=== PATIENT | female | born 1985 | race Caucasian/White ===

== ENCOUNTER 2022-06-13 16:24 | Emergency (ER) | payer BC ==
--- NOTE | 2022-06-13 16:26 | ERPHSYRPT ---
- History of Present Illness Time Seen by Provider: 06/13/22 16:26 Historian: patient Exam Limitations: no limitations Physician History: This is a morbidly obese 36-year-old white female has a history of gastroesophageal reflux disease, morbid obesity, hypertension and anxiety issues and presents to the emergency department with 1 day history of sudden onset of fever, cough, mild shortness of breath, vomiting and diarrhea as well as myalgias and arthralgias. Patient states family members have had similar symptoms. However within 24 hours of those symptoms and those family members resolved. Patient's symptoms are worse. Patient denies chest pain. She only has mild abdominal pain from vomiting. She has no dysuria or hematuria. She has no localized flank pain. Timing/Duration: yesterday Activities at Onset: none Abdominal Pain Onset Location: generalized abdomen Pain Radiation: no radiation (Mild) Severity of Pain-Max: mild Severity of Pain-Current: mild Modifying Factors: Improves With: coughing, vomiting Associated Symptoms: diarrhea, loss of appetite, nausea, shortness of breath, vomiting, weakness Previous symptoms: no prior history Allergies/Adverse Reactions: No Known Drug Allergies Allergy (Unverified 06/13/22 16:48) Home Medications: Fluoxetine HCl 20 mg [Prozac 20 MG] 60 mg PO DAILY 06/13/22 [History] Lisinopril 20 mg [Zestril 20 MG] 20 mg PO DAILY 06/13/22 [History] Lorazepam 0.5 mg [Ativan 0.5 MG] 0.5 mg PO HS 06/13/22 [History] Metoprolol Succinate 25 mg Xl* [Toprol-Xl 25MG Tablets] 25 mg PO DAILY 06/13/22 [History] Omeprazole 40 mg PO DAILY 06/13/22 [History] Quetiapine Fumarate 100 mg [Seroquel 100 MG] 100 mg PO BID 06/13/22 [History] Quetiapine Fumarate 25 mg [Seroquel 25 MG] 25 mg PO DAILY PRN PRN 06/13/22 [History] Rimegepant Sulfate [Nurtec Odt] 75 mg PO DAILY 06/13/22 [History] Travel Risk - International Travel Have you traveled outside of the country in past 3 weeks: No - Coronavirus Screening Are you exhibiting any of the following symptoms?: Yes Symptoms: Cough: New Onset, Shortness of Breath, Vomiting/Diarrhea, Headaches/Body Aches/Fatigue Close contact with a COVID-19 positive Pt in past 14-21 Days: No - Review of Systems Constitutional: No Symptoms Eyes: No Symptoms Ears, Nose, & Throat: No Symptoms Respiratory: No Symptoms Cardiac: No Symptoms Abdominal/Gastrointestinal: Abdominal Pain (Mild generalized), Nausea, Vomiting, Diarrhea, No Constipation Genitourinary Symptoms: No Symptoms Musculoskeletal: Arthralgias, Myalgias Skin: No Symptoms Neurological: No Symptoms Psychological: No Symptoms Endocrine: No Symptoms Hematologic/Lymphatic: No Symptoms Immunological/Allergic: No Symptoms All Other Systems: Reviewed and Negative - Past Medical History Pertinent Past Medical History: Yes - Past Surgical History Past Surgical History: Yes - Nursing Vital Signs Nursing Vital Signs: Initial Vital Signs Temperature 98.4 F 06/13/22 16:39 Pulse Rate 113 H 06/13/22 16:39 Respiratory Rate 20 06/13/22 16:39 Blood Pressure 148/96 06/13/22 16:39 O2 Sat by Pulse Oximetry 95 06/13/22 16:39 Pain Scale Pain Intensity 8 - Physical Exam General Appearance: no apparent distress, alert, anxiety, obese Eye Exam: PERRL/EOMI, eyes nml inspection Ears, Nose, Throat Exam: normal ENT inspection, moist mucous membranes Neck Exam: normal inspection, non-tender, supple, full range of motion Respiratory Exam: normal breath sounds, lungs clear, airway intact, No chest tenderness, No respiratory distress Cardiovascular Exam: normal peripheral pulses, tachycardia Gastrointestinal/Abdomen Exam: soft, normal bowel sounds, tenderness (Very mild diffuse to palpation), No guarding, No rebound Pelvic Exam: not done Rectal Exam: not done Back Exam: normal inspection, normal range of motion, No CVA tenderness, No vertebral tenderness Extremity Exam: normal inspection, normal range of motion, pelvis stable Neurologic Exam: alert, oriented x 3, cooperative, 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 nml as tested, normal mood/affect, nml cerebellar function, nml station & gait, sensation nml Skin Exam: normal color, warm, dry Lymphatic Exam: No adenopathy SpO2 Interpretation: normal O2 Delivery: Room Air - Course Nursing assessment & vital signs reviewed: Yes Ordered Tests: Active Orders 24 hr Category Date Time Status IV Insertion STAT Care 06/13/22 16:51 Active CHEST 1 VIEW (PORTABLE) Stat Exams 06/13/22 16:52 Taken AMYLASE Stat Lab 06/13/22 17:08 Completed BLOOD CULTURE Stat Lab 06/13/22 16:45 Received CBC W DIFF Stat Lab 06/13/22 17:08 Completed CMP Stat Lab 06/13/22 17:08 Completed HCG,QUALITATIVE URINE Stat Lab 06/13/22 16:55 Completed LIPASE Stat Lab 06/13/22 17:08 Completed Lactic Acid Stat Lab 06/13/22 16:58 Completed Webster Screen Stat Lab 06/13/22 17:08 Completed UA W/RFX CULTURE Stat Lab 06/13/22 16:55 Ordered Medication Summary Discontinued Medications Generic Name Dose Route Start Last Admin Trade Name Freq PRN Reason Stop Dose Admin Sodium Chloride 1,000 mls @ 999 mls/hr 06/13/22 16:51 06/13/22 16:59 Sodium Chloride 0.9% 1000 Ml IV 06/13/22 17:51 999 mls/hr .Q1H1M STA Administration Sodium Chloride Confirm 06/13/22 16:57 Sodium Chloride 0.9% 1000 Ml Administered 06/13/22 16:58 Dose 1,000 mls @ ud .ROUTE .STK-MED ONE Ondansetron HCl 4 mg 06/13/22 16:51 06/13/22 16:59 Ondansetron Hcl 4 Mg/2 Ml Vial IV 06/13/22 16:52 4 mg STAT ONE Administration Ondansetron HCl Confirm 06/13/22 16:57 Ondansetron Hcl 4 Mg/2 Ml Vial Administered 06/13/22 16:58 Dose 4 mg .ROUTE .STK-MED ONE Lab/Rad Data: Laboratory Result Diagrams 06/13/22 17:08 06/13/22 17:08 Laboratory Results 06/13/22 06/13/22 06/13/22 Range/Units 17:08 17:08 17:08 WBC (4.0-10.5) x10^3/uL RBC (4.1-5.4) x10^6/uL Hgb (12.0-16.0) g/dL Hct (35-47) % MCV (78-100) fL MCH (26-32) pg MCHC (32-36) g/dL RDW (11.5-14.0) % Plt Count (150-450) x10^3/uL MPV (7.5-11.0) fL Gran % (36.0-66.0) % Immature Gran % (Auto) (0.00-0.4) % Nucleat RBC Rel Count (0.00-0.1) % Eos # (Auto) (0-0.5) x10^3/uL Immature Gran # (Auto) (0.00-0.03) x10^3u/L Absolute Lymphs (auto) (1.0-4.6) x10^3/uL Absolute Monos (auto) (0.0-1.3) x10^3/uL Absolute Nucleated RBC (0.00-0.01) x10^3u/L Lymphocytes % (24.0-44.0) % Monocytes % (0.0-12.0) % Eosinophils % (0.00-5.0) % Basophils % (0.0-0.4) % Absolute Granulocytes (1.4-6.9) x10^3/uL Basophils # (0-0.4) x10^3/uL Sodium (137-145) mmol/L Potassium (3.5-5.1) mmol/L Chloride (98-107) mmol/L Carbon Dioxide (22-30) mmol/L Anion Gap (5-15) MEQ/L BUN (7-17) mg/dL Creatinine (0.52-1.04) mg/dL Estimated GFR ML/MIN Glucose (74-106) mg/dL Lactic Acid (0.4-2.0) Calcium (8.4-10.2) mg/dL Total Bilirubin (0.2-1.3) mg/dL AST (14-36) U/L ALT (0-35) U/L Alkaline Phosphatase (38-126) U/L Serum Total Protein (6.3-8.2) g/dL Albumin (3.5-5.0) g/dL Amylase (30-110) U/L Lipase (23-300) U/L Urine HCG, Qual (Negative) Monoscreen NEGATIVE (Negative) Influenza Type A Ag NEGATIVE (NEGATIVE) Influenza Type B Ag NEGATIVE (NEGATIVE) RSV (PCR) NEGATIVE (Negative) SARS-CoV-2 (PCR) POSITIVE A (NEGATIVE) Group A Strep Antibody NOT DETECTED (NEGATIVE) 06/13/22 06/13/22 06/13/22 Range/Units 17:08 17:08 16:58 WBC 9.9 (4.0-10.5) x10^3/uL RBC 4.98 (4.1-5.4) x10^6/uL Hgb 13.2 (12.0-16.0) g/dL Hct 40.3 (35-47) % MCV 80.9 (78-100) fL MCH 26.5 (26-32) pg MCHC 32.8 (32-36) g/dL RDW 13.8 (11.5-14.0) % Plt Count 349 (150-450) x10^3/uL MPV 9.9 (7.5-11.0) fL Gran % 85.7 H (36.0-66.0) % Immature Gran % (Auto) 0.2 (0.00-0.4) % Nucleat RBC Rel Count 0.0 (0.00-0.1) % Eos # (Auto) 0.01 (0-0.5) x10^3/uL Immature Gran # (Auto) 0.02 (0.00-0.03) x10^3u/L Absolute Lymphs (auto) 0.73 L (1.0-4.6) x10^3/uL Absolute Monos (auto) 0.61 (0.0-1.3) x10^3/uL Absolute Nucleated RBC 0.00 (0.00-0.01) x10^3u/L Lymphocytes % 7.4 L (24.0-44.0) % Monocytes % 6.2 (0.0-12.0) % Eosinophils % 0.1 (0.00-5.0) % Basophils % 0.4 (0.0-0.4) % Absolute Granulocytes 8.46 H (1.4-6.9) x10^3/uL Basophils # 0.04 (0-0.4) x10^3/uL Sodium 135 L (137-145) mmol/L Potassium 4.0 (3.5-5.1) mmol/L Chloride 105 (98-107) mmol/L Carbon Dioxide 19 L (22-30) mmol/L Anion Gap 15.7 H (5-15) MEQ/L BUN 12 (7-17) mg/dL Creatinine 0.91 (0.52-1.04) mg/dL Estimated GFR > 60.0 ML/MIN Glucose 108 H (74-106) mg/dL Lactic Acid 1.3 (0.4-2.0) Calcium 9.5 (8.4-10.2) mg/dL Total Bilirubin 0.30 (0.2-1.3) mg/dL AST 32 (14-36) U/L ALT 32 (0-35) U/L Alkaline Phosphatase 136 H (38-126) U/L Serum Total Protein 8.0 (6.3-8.2) g/dL Albumin 4.5 (3.5-5.0) g/dL Amylase 67 (30-110) U/L Lipase 61 (23-300) U/L Urine HCG, Qual (Negative) Monoscreen (Negative) Influenza Type A Ag (NEGATIVE) Influenza Type B Ag (NEGATIVE) RSV (PCR) (Negative) SARS-CoV-2 (PCR) (NEGATIVE) Group A Strep Antibody (NEGATIVE) 06/13/22 Range/Units 16:55 WBC (4.0-10.5) x10^3/uL RBC (4.1-5.4) x10^6/uL Hgb (12.0-16.0) g/dL Hct (35-47) % MCV (78-100) fL MCH (26-32) pg MCHC (32-36) g/dL RDW (11.5-14.0) % Plt Count (150-450) x10^3/uL MPV (7.5-11.0) fL Gran % (36.0-66.0) % Immature Gran % (Auto) (0.00-0.4) % Nucleat RBC Rel Count (0.00-0.1) % Eos # (Auto) (0-0.5) x10^3/uL Immature Gran # (Auto) (0.00-0.03) x10^3u/L Absolute Lymphs (auto) (1.0-4.6) x10^3/uL Absolute Monos (auto) (0.0-1.3) x10^3/uL Absolute Nucleated RBC (0.00-0.01) x10^3u/L Lymphocytes % (24.0-44.0) % Monocytes % (0.0-12.0) % Eosinophils % (0.00-5.0) % Basophils % (0.0-0.4) % Absolute Granulocytes (1.4-6.9) x10^3/uL Basophils # (0-0.4) x10^3/uL Sodium (137-145) mmol/L Potassium (3.5-5.1) mmol/L Chloride (98-107) mmol/L Carbon Dioxide (22-30) mmol/L Anion Gap (5-15) MEQ/L BUN (7-17) mg/dL Creatinine (0.52-1.04) mg/dL Estimated GFR ML/MIN Glucose (74-106) mg/dL Lactic Acid (0.4-2.0) Calcium (8.4-10.2) mg/dL Total Bilirubin (0.2-1.3) mg/dL AST (14-36) U/L ALT (0-35) U/L Alkaline Phosphatase (38-126) U/L Serum Total Protein (6.3-8.2) g/dL Albumin (3.5-5.0) g/dL Amylase (30-110) U/L Lipase (23-300) U/L Urine HCG, Qual NEGATIVE (Negative) Monoscreen (Negative) Influenza Type A Ag (NEGATIVE) Influenza Type B Ag (NEGATIVE) RSV (PCR) (Negative) SARS-CoV-2 (PCR) (NEGATIVE) Group A Strep Antibody (NEGATIVE) - Progress Progress: improved Progress Note: 06/13/22 18:00 Chest x-ray shows no acute cardiopulmonary process. Counseled pt/family regarding: lab results, diagnosis, rad results - Departure Departure Disposition: Home Clinical Impression: COVID-19 virus infection Condition: Stable Critical Care Time: No Referrals: DOCTOR,NO FAMILY [Primary Care Provider] - Follow up/PCP as directed Additional Instructions: Drink plenty of clear liquids before advancing your diet to a full liquid diet. Quarantine yourself as instructed. Use ibuprofen for pain and fever control. Use your cough medicine as prescribed. Use your nausea medication as prescribed. Prescriptions: Ondansetron ODT 4 MG [Zofran Odt 4 mg] 4 mg PO Q6H PRN PRN #10 tablet PRN Reason: Vomiting Hydrocodone/Acetaminophen [Hydrocodone-Acetamn 7.5-325/15] 10 ml PO Q8H PRN PRN #120 ml MDD 30 ml PRN Reason: Cough
[2022-06-13] MEDS ORDERED: Zofran 4 MG/2 ML VIAL IV ONE (16:51)
[2022-06-13] MEDS ORDERED: Sodium Chloride 0.9% 1000 ML 1,000 ML IV STA (16:51)
[2022-06-13] MEDS ORDERED: Sodium Chloride 0.9% 1000 ML 1,000 ML ONE (16:57)
[2022-06-13] MEDS ORDERED: Zofran 4 MG/2 ML VIAL ONE (16:57)
[2022-06-13 17:18] LABS: Absolute Neutrophil Ct (ANC) 8.46 x10^3/uL (1.4-6.9); Basophil (Absolute #) 0.04 x10^3/uL (0-0.4); Eosinophil % 0.1 % (0.00-5.0); Eosinophil (Absolute #) 0.01 x10^3/uL (0-0.5); Hematocrit 40.3 % (35-47); Hemoglobin 13.2 g/dL (12.0-16.0); Lymphocyte (Absolute #) 0.73 x10^3/uL (1.0-4.6); Lymphocytes % 7.4 % (24.0-44.0); Mean Cell Volume 80.9 fL (78-100); Mean Corpuscular Hemoglobin 26.5 pg (26-32); Mean Corpuscular Hgb Concent. 32.8 g/dL (32-36); Mean Platelet Volume 9.9 fL (7.5-11.0); Monocyte (Absolute #) 0.61 x10^3/uL (0.0-1.3); Monocytes % 6.2 % (0.0-12.0); Neutrophil % 85.7 % (36.0-66.0); Platelet Count 349 x10^3/uL (150-450); Red Blood Count 4.98 x10^6/uL (4.1-5.4); Red Cell Distribution Width 13.8 % (11.5-14.0); White Blood Count 9.9 x10^3/uL (4.0-10.5)
[2022-06-13 17:28] LABS: ALBUMIN 4.5 g/dL (3.5-5.0); ALKALINE PHOSPHATASE 136 U/L (38-126); AMYLASE 67 U/L (30-110); ANION GAP 15.7 MEQ/L (5-15); BLOOD UREA NITROGEN 12 mg/dL (7-17); CHLORIDE 105 mmol/L (98-107); Calcium 9.5 mg/dL (8.4-10.2); Carbon Dioxide 19 mmol/L (22-30); Creatinine 1 0.91 mg/dL (0.52-1.04); EST GLOMERULAR FILTRATION RATE > 60.0 ML/MIN; Glucose 108 mg/dL (74-106); LIPASE 61 U/L (23-300); SGOT/AST 32 U/L (14-36); SGPT/ALT 32 U/L (0-35); SODIUM 135 mmol/L (137-145)
[2022-06-13 17:55] LABS: INFLUENZA A NEGATIVE (NEGATIVE); INFLUENZA B NEGATIVE (NEGATIVE); RESPIRATORY SYNCTIAL VIRUS NEGATIVE (Negative)
[2022-06-13 17:58] LABS: SARS-CoV-2 Xpert Express POSITIVE (NEGATIVE)
[2022-06-13 18:04] VITALS: BP 142/92; PULSE 101; O2SAT 100
[2022-06-13 18:13] LABS: Bacteria RARE /HPF (NEGATIVE); Epithelial Cells MANY /HPF (FEW); Mucus SLIGHT /HPF (NEGATIVE); RBC 0-2 /HPF (0-2)
[2022-06-13 18:17] LABS: Appearance SLIGHTLY CLOUDY (CLEAR); Bilirubin NEGATIVE (NEGATIVE); Glucose NEGATIVE (NEGATIVE); Ketones NEGATIVE (NEGATIVE); Nitrite NEGATIVE (NEGATIVE); Protein,Urine Dip NEGATIVE (Negative); RBC NEGATIVE Ery/ul (0-5); Specific Gravity 1.025 (1.005-1.025); Urobilinogen 1 mg/dL (0-1)
[2022-06-13 18:18] LABS: Dipstick done @ ? MAIN LAB; Urine Cultured Indicated? NO
--- NOTE | 2022-06-14 09:22 | XRAY ---
Exam: AP upright portable chest film from 06/13/2022. Comparison: [None.] Indication: Cough; shortness of air. Findings: EKG leads are seen in place. The heart size and contour are normal. The enrique and mediastinal structures appear unremarkable. The patient is rotated slightly toward the right. The lungs are well expanded and reveal no air space infiltrates, vascular congestion, pneumothorax, or pleural fluid. There is a tiny calcified granuloma within the superior right lung apex. No acute osseous process is seen. Impression: 1. No acute cardiopulmonary disease is seen.
== END 2022-06-13 18:25 | disposition home or self-care (01) ==
LOC: ED 16:24
DX: U07.1 COVID-19 (principal); R50.9 Fever, unspecified; R05.1 Acute cough; R06.02 Shortness of breath; R11.2 Nausea with vomiting, unspecified; R19.7 Diarrhea, unspecified; M79.10 Myalgia, unspecified site; R10.84 Generalized abdominal pain; Z79.891 Long term (current) use of opiate analgesic; Z79.899 Other long term (current) drug therapy
CPT/HCPCS: 0241U; 36000; 36415; 71045; 80053; 81015; 81025; 82150; 83605; 83690; 85025; 86308; 87040; 87651; 96374; 99284; J2405

== ENCOUNTER 2022-07-04 18:56 | Emergency (ER) | payer BC ==
[2022-07-04 19:25] VITALS: O2SAT 97
[2022-07-04] MEDS ORDERED: Augmentin 875-125 Tablet PO ONE (19:39)
[2022-07-04] MEDS ORDERED: TORAdol 30 mg Injection IM ONE (19:40)
--- NOTE | 2022-07-04 19:41 | ERPHSYRPT ---
- History of Present Illness Time Seen by Provider: 07/04/22 19:30 Source: patient Exam Limitations: no limitations Patient Subjective Stated Complaint: pt states "My left ear has been hurting for a couple days." Triage Nursing Assessment: pt ambulatory to bed by self, pt alert and oriented x3, pt c/o L ear pain for 2 days, pt was seen by ENT on Jun 21 for her chronic sinuitis and was prescribed amoxicillin for 21 as well, pt is afebrile, pt has tinnitis but no drainage noted from the L ear Physician History: Patient is a 37-year-old female presents to emergency department for evaluation of left ear pain. Patient has been experiencing left ear pain and mild tinnitus for approximately 2 days. Patient states she has a history of chronic sinusitis. Patient recently saw her ENT doctor who started her on amoxicillin. Patient has been on amoxicillin since June 21. Patient symptoms are constant. Symptoms are moderate in intensity. No specific worsening or improving factors. No headache. No mastoid pain or tenderness. No neck pain. No photophobia. Patient has no meningeal signs. Patient that she is otherwise healthy. She voices no other complaints or concerns at this time. Portions of this note were created with voice recognition technology. There may be grammatical, spelling, punctuation or sound alike errors Timing/Duration: gradual onset Severity: moderate ENT Location: ear (L) Prearrival Treatment: no prearrival treatment Modifying Factors: Improves With: nothing Associated Symptoms: denies symptoms, dizziness, ringing of ears, other, No fever, No drooling (Mild cellulitis), No ear drainage, No jaw pain, No motion sickness, No neck pain, No tooth pain Allergies/Adverse Reactions: No Known Drug Allergies Allergy (Verified 07/04/22 19:17) Home Medications: Fluoxetine HCl 20 mg [Prozac 20 MG] 60 mg PO DAILY 06/13/22 [History] Lisinopril 20 mg [Zestril 20 MG] 20 mg PO DAILY 06/13/22 [History] Lorazepam 0.5 mg [Ativan 0.5 MG] 0.5 mg PO HS 06/13/22 [History] Metoprolol Succinate 25 mg Xl* [Toprol-Xl 25MG Tablets] 25 mg PO DAILY 06/13/22 [History] Omeprazole 40 mg PO DAILY 06/13/22 [History] Rimegepant Sulfate [Nurtec Odt] 75 mg PO DAILY 06/13/22 [History] Olanzapine [Olanzapine Odt] 5 mg PO DAILY 07/04/22 [History] Hx Tetanus, Diphtheria Vaccination/Date Given: Yes Hx Influenza Vaccination/Date Given: No Hx Pneumococcal Vaccination/Date Given: No Immunizations Up to Date: Yes Travel Risk - International Travel Have you traveled outside of the country in past 3 weeks: No - Coronavirus Screening Are you exhibiting any of the following symptoms?: No Close contact with a COVID-19 positive Pt in past 14-21 Days: No - Vaccine Status Have you recieved a Covid-19 vaccination: No - Review of Systems Constitutional: No Symptoms, No Fever, No Chills Eyes: No Symptoms Ears, Nose, & Throat: No Symptoms Respiratory: No Symptoms, No Cough, No Dyspnea Cardiac: No Symptoms, No Chest Pain, No Edema, No Syncope Abdominal/Gastrointestinal: No Symptoms, No Abdominal Pain, No Nausea, No Vomiting, No Diarrhea Genitourinary Symptoms: No Symptoms, No Dysuria Musculoskeletal: No Symptoms, No Back Pain, No Neck Pain Skin: No Symptoms, No Rash Neurological: No Symptoms, No Dizziness, No Focal Weakness, No Sensory Changes Psychological: No Symptoms Endocrine: No Symptoms Hematologic/Lymphatic: No Symptoms Immunological/Allergic: No Symptoms All Other Systems: Reviewed and Negative - Past Medical History Pertinent Past Medical History: Yes Neurological History: Migraines ENT History: No Pertinent History Cardiac History: Hypertension Respiratory History: No Pertinent History Endocrine Medical History: No Pertinent History Musculoskeletal History: Arthritis GI Medical History: GERD History: No Pertinent History Psycho-Social History: Anxiety, Bipolar, Depression Female Reproductive Disorders: No Pertinent History - Past Surgical History Past Surgical History: Yes Neuro Surgical History: No Pertinent History Cardiac: No Pertinent History Respiratory: No Pertinent History Gastrointestinal: Cholecystectomy Genitourinary: No Pertinent History Musculoskeletal: Joint Replacement Female Surgical History: Tubal Ligation Other Surgical History: R knee - Social History Smoking Status: Never smoker Exposure to second hand smoke: No Drug Use: none Patient Lives Alone: No - Female History Hx Last Menstrual Period: 06/13/2022 Hx Now: No - Nursing Vital Signs Nursing Vital Signs: Initial Vital Signs Temperature 98.2 F 07/04/22 19:24 Pulse Rate 101 H 07/04/22 19:24 Respiratory Rate 18 07/04/22 19:24 Blood Pressure 189/100 07/04/22 19:24 O2 Sat by Pulse Oximetry 97 07/04/22 19:24 Pain Scale Pain Intensity 8 - Physical Exam General Appearance: no apparent distress, alert Eye Exam: bilateral eye: normal inspection, PERRL, EOMI Ear Exam: right ear: auricle normal, canal normal, TM normal, left ear: TM red, TM bulging, other (No mastoid erythema or tenderness.) Nasal Exam: normal inspection Throat Exam: normal, pharynx normal, moist mucus membranes, No tonsillar exudate, No trismus Neck Exam: normal inspection, non-tender, supple, full range of motion Cardiovascular/Respiratory Exam: chest non-tender, normal breath sounds, regular rate/rhythm Abdominal Exam: non-tender, soft, No tenderness Neurologic Exam: alert, oriented x 3, cooperative, 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 Patient currently on amoxicillin as per her ENT for chronic sinusitis. We will discontinue the amoxicillin and start her on Augmentin. Patient agrees to stop the amoxicillin and to only take Augmentin. Patient will follow up with her ENT doctor within 48 hours for reevaluation. Patient given Toradol IM for pain control. Patient dates she feels much better. Patient ready for discharge. She voices no other complaints or concerns at this time. Portions of this note were created with voice recognition technology. There may be grammatical, spelling, punctuation or sound alike errors 07/04/22 19:42 Counseled pt/family regarding: diagnosis, need for follow-up - Departure Departure Disposition: Home Clinical Impression: Otitis media Condition: Stable Critical Care Time: No Referrals: DOCTOR,NO FAMILY [Primary Care Provider] - Follow up/PCP as directed TANYA GALLARDO MD [ACTIVE STAFF] - Follow up/PCP as directed Additional Instructions: Discharge/Care Plan GORAN THAPA was seen on 07/04/22 in the Emergency Room. The patient was counseled regarding Diagnosis,Lab results, Imaging studies, need for follow up and when to return to the Emergency Room. Prescriptions given: Discharge Note I have spoken with the patient and/or caregivers. I have explained the patient's condition, diagnosis and treatment plan based on the information available to me at this time. I have answered the patient's and/or caregiver's questions and addressed any concerns. The patient and/or caregivers have as good understanding of the patient's diagnosis, condition and treatment plan as can be expected at this point. The vital signs have been stable. The patient's condition is stable and appropriate for discharge from the emergency department. The patient will pursue further outpatient evaluation with the primary care physician or other designated or consulting physician as outlined in the discharge instructions. The patient and/or caregivers are agreeable to this plan of care and follow-up instructions have been explained in detail. The patient and/or caregivers have received these instruction. The patient/and or caregivers are aware that any significant change in condition or worsening of symptoms should prompt an immediate return to this or the closest emergency department or call 911.
[2022-07-04] MEDS ORDERED: TYLENOL 325 MG PO ONE (19:44)
[2022-07-04] MEDS ORDERED: TYLENOL 325 MG ONE (20:06)
[2022-07-04] MEDS ORDERED: Augmentin 875-125 Tablet ONE (20:06)
[2022-07-04] MEDS ORDERED: TORAdol 30 mg Injection ONE (20:06)
[2022-07-04 20:19] VITALS: BP 167/102; PULSE 97
== END 2022-07-04 20:30 | disposition home or self-care (01) ==
LOC: ED 18:56
DX: H66.92 Otitis media, unspecified, left ear (principal); H92.02 Otalgia, left ear; H93.12 Tinnitus, left ear; I10 Essential (primary) hypertension; Z79.899 Other long term (current) drug therapy; Z28.310 Unvaccinated for COVID-19
CPT/HCPCS: 96372; 99283; J1885; A9270-GY

== ENCOUNTER 2022-08-29 12:10 | Day surgery (SDC) | payer BC ==
[2022-08-29] MEDS ORDERED: LIDOCAINE HCL 2% 100 MG/5 ML IJ ONE (12:11)
[2022-08-29] MEDS ORDERED: Lactated Ringers 1,000 ML IV ONE (14:03)
[2022-08-29] MEDS ORDERED: DIPRIVAN 200 MG/20 ML IV ONE (14:24)
--- NOTE | 2022-08-29 16:40 | XRAY ---
Indication: Bilateral L4-S1 MBB. Intraoperative fluoroscopy provided for 8 seconds. Single digital spot image submitted for interpretation demonstrates posterior needle tips projecting over the expected left and right L4-S1 nerve roots. Correlate with intraoperative findings/report.
--- NOTE | 2022-08-29 16:49 | XRAY ---
8 seconds fluoroscopy time in surgery for bilateral L4-S1 MBB.
== END 2022-08-29 15:00 | disposition home or self-care (01) ==
LOC: SDC-PAIN 12:10
PROVIDERS: ATTEND Psychiatry & Neurology Pain Medicine
DX: M47.816 Spondylosis without myelopathy or radiculopathy, lumbar region (principal); Z79.899 Other long term (current) drug therapy
CPT/HCPCS: 64493; 64494; 72020; 77002; 81025; J2704

== ENCOUNTER 2022-09-26 13:56 | Day surgery (SDC) | payer BC ==
[2022-09-26] MEDS ORDERED: BUPIVACAINE 0.5% VIAL IJ ONE (13:57)
[2022-09-26] MEDS ORDERED: APRESOLINE 20 MG/ML INJ ONE (14:27)
[2022-09-26] MEDS ORDERED: DIPRIVAN 200 MG/20 ML IV ONE (15:31)
[2022-09-26] MEDS ORDERED: Lactated Ringers 1,000 ML IV ONE (16:37)
--- NOTE | 2022-09-26 16:58 | XRAY ---
8 seconds of fluoroscopy was used in surgery for a bilateral L4-S1 MBB.
== END 2022-09-26 16:22 | disposition home or self-care (01) ==
LOC: SDC-PAIN 13:56
PROVIDERS: ATTEND Psychiatry & Neurology Pain Medicine
DX: M47.816 Spondylosis without myelopathy or radiculopathy, lumbar region (principal); Z79.899 Other long term (current) drug therapy
CPT/HCPCS: 64493; 64494; 72020; 77002; 81025; J0360; J2704

== ENCOUNTER 2022-10-24 13:43 | Day surgery (SDC) | payer BC ==
[2022-10-24] MEDS ORDERED: Depo-Medrol 40 MG/ML IM ONE (13:44)
[2022-10-24] MEDS ORDERED: BUPIVACAINE 0.5% VIAL IJ ONE (13:44)
[2022-10-24] MEDS ORDERED: LIDOCAINE HCL 1% 50 MG/5 ML VL PF IJ ONE (13:44)
[2022-10-24] MEDS ORDERED: Xylocaine-Mpf 2% 5 Ml Vial ONE (16:46)
[2022-10-24] MEDS ORDERED: Lactated Ringers 1,000 ML IV ONE (17:22)
--- NOTE | 2022-10-24 19:48 | XRAY ---
Indication: Right L4-S1 RFA. Intraoperative fluoroscopy provided for 31 seconds. 6 digital spot images submitted for interpretation demonstrates posterior needle tips projecting over the expected right L4-S1 nerve roots. Correlate with intraoperative findings/report.
--- NOTE | 2022-10-25 09:05 | XRAY ---
31 seconds fluoroscopy time in surgery for right L4-S1 RFA.
== END 2022-10-24 17:20 | disposition home or self-care (01) ==
LOC: SDC-PAIN 13:43
PROVIDERS: ATTEND Psychiatry & Neurology Pain Medicine
DX: M47.816 Spondylosis without myelopathy or radiculopathy, lumbar region (principal); Z79.899 Other long term (current) drug therapy
CPT/HCPCS: 64635; 64636; 72100; 77002; 81025; J1030; J2001

== ENCOUNTER 2022-10-31 14:04 | Day surgery (SDC) | payer BC ==
[2022-10-31] MEDS ORDERED: BUPIVACAINE 0.5% VIAL IJ ONE ×2 (14:05)
[2022-10-31] MEDS ORDERED: Depo-Medrol 40 MG/ML IM ONE ×2 (14:05)
[2022-10-31] MEDS ORDERED: LIDOCAINE HCL 1% 50 MG/5 ML VL PF IJ ONE ×2 (14:05)
[2022-10-31] MEDS ORDERED: Xylocaine-Mpf 2% 5 Ml Vial ONE (16:52)
[2022-10-31] MEDS ORDERED: DIPRIVAN 200 MG/20 ML IV ONE ×2 (16:52→17:04)
[2022-10-31] MEDS ORDERED: Lactated Ringers 1,000 ML IV ONE (17:11)
--- NOTE | 2022-10-31 19:33 | XRAY ---
Indication: Left L4-S1 RFA. Intraoperative fluoroscopy provided for 30 second. 4 digital spot image submitted for interpretation demonstrates posterior needle tips projecting over the expected left L4-S1 nerve roots. Correlate with intraoperative findings/report.
--- NOTE | 2022-11-01 09:18 | XRAY ---
30 seconds of fluoroscopy was used in surgery for a left L4-S1 RFA.
== END 2022-10-31 17:27 | disposition home or self-care (01) ==
LOC: SDC-PAIN 14:04
PROVIDERS: ATTEND Psychiatry & Neurology Pain Medicine
DX: M47.816 Spondylosis without myelopathy or radiculopathy, lumbar region (principal); Z79.899 Other long term (current) drug therapy
CPT/HCPCS: 64635; 64636; 72100; 77002; 81025; J1030; J2001; J2704

== ENCOUNTER 2023-03-31 15:22 | Observation (INO) | payer BC ==
[2023-03-31] MEDS ORDERED: Sodium Chloride 0.9% 1000 ML 1,000 ML IV STA (17:10)
[2023-03-31] MEDS ORDERED: Sodium Chloride 0.9% 1000 ML 1,000 ML ONE (17:16)
[2023-03-31 17:36] LABS: Absolute Neutrophil Ct (ANC) 7.23 x10^3/uL (1.4-6.9); BASOPHIL % 0.5 % (0.0-0.4); Basophil (Absolute #) 0.06 x10^3/uL (0-0.4); Eosinophil % 0.9 % (0.00-5.0); Hematocrit 40.5 % (35-47); Hemoglobin 12.8 g/dL (12.0-16.0); IMMATURE GRAN # 0.05 x10^3u/L (0.00-0.03); IMMATURE GRAN % 0.4 % (0.00-0.4); Lymphocyte (Absolute #) 3.09 x10^3/uL (1.0-4.6); Lymphocytes % 27.3 % (24.0-44.0); Mean Cell Volume 88.4 fL (78-100); Mean Corpuscular Hemoglobin 27.9 pg (26-32); Mean Corpuscular Hgb Concent. 31.6 g/dL (32-36); Mean Platelet Volume 9.6 fL (7.5-11.0); Monocyte (Absolute #) 0.79 x10^3/uL (0.0-1.3); Neutrophil % 63.9 % (36.0-66.0); Platelet Count 417 x10^3/uL (150-450); Red Blood Count 4.58 x10^6/uL (4.1-5.4); Red Cell Distribution Width 13.4 % (11.5-14.0); White Blood Count 11.3 x10^3/uL (4.0-10.5)
[2023-03-31 17:43] LABS: Appearance Clear (Clear); Bacteria None Seen /HPF (None Seen); Bilirubin Negative (Negative); Blood Negative (Negative); Epithelial Cells Few /HPF (None Seen); Glucose, Urine Negative (Negative); Hyaline Casts NONE SEEN /LPF (0-2); Ketones Negative (Negative); Leukocyte Esterase Trace (Negative); Nitrite Negative (Negative); Protein,Urine Dip Negative (Negative); RBC 0-2 /HPF (0-5); Specific Gravity 1.025 (1.005-1.030); WBC 0-2 /HPF (0-5)
[2023-03-31 17:44] LABS: ADD URINE CULTURE? NO (NO)
[2023-03-31 17:48] LABS: ALBUMIN 4.3 g/dL (3.5-5.0); ALKALINE PHOSPHATASE 100 U/L (38-126); ANION GAP 16.7 MEQ/L (5-15); BLOOD UREA NITROGEN 18 mg/dL (7-17); CHLORIDE 110 mmol/L (98-107); Calcium 8.6 mg/dL (8.4-10.2); Carbon Dioxide 18 mmol/L (22-30); Creatinine 1 0.95 mg/dL (0.52-1.04); EST GLOMERULAR FILTRATION RATE > 60.0 ML/MIN; Glucose 94 mg/dL (74-106); Potassium 4.1 mmol/L (3.5-5.1); SGOT/AST 22 U/L (14-36); SGPT/ALT 31 U/L (0-35); SODIUM 141 mmol/L (137-145); Total Protein 7.8 g/dL (6.3-8.2)
--- NOTE | 2023-03-31 18:11 | XRAY ---
CLINICAL HISTORY:Headache, left pp vision loss, weak; COMPARISON:None; TECHNIQUES:Multiple, contiguous, non-enhanced CT scan of the brain in the axial plane with multiplanar reconstructions in bony and soft tissue windows. CTDI- 53.92 mGy ;Total DLP-1016.25 mGy*cm; FINDINGS: Normal CT attenuation of both cerebral hemispheres with no areas of abnormal attenuation values. No suspicious space-occupying lesions. No intra or extra-axial collections of fresh blood density. Normal size and shape of the ventricles, basal cisterns and cortical sulci. Basal ganglia, thalamus and internal capsule appear normal. Brainstem and justice appear normal. No shift of midline structures. Unremarkable posterior fossa. Largely preserved cranial calvarial bones. Hyperostosis frontalis interna noted. Falx cerebri calcifications noted. Visualized paranasal sinuses shows opacification in the left maxillary sinus representing sinusitis with defect in the medial wall of maxillary sinus, possibly related to prior surgical intervention. Septal perforation defect noted anteriorly measuring about 8.5 mm. Deflected nasal septum towards right side. IMPRESSION: 1. Unremarkable study of CT brain. 2. No acute intracranial abnormality. 3. In case of clinical concern for acute ischemic lesion, further evaluation with MRI is recommended. Electronically Signed by: Cullen Esparza MD. (03/31/2023 17:06:58 [employer])
[2023-03-31] MEDS ORDERED: TYLENOL 325 MG PO ONE (18:13)
[2023-03-31] MEDS ORDERED: Reglan 10 MG/2 ML IV ONE (18:13)
[2023-03-31] MEDS ORDERED: BENADRYL 50 MG/ML IV ONE (18:13)
[2023-03-31] MEDS ORDERED: Reglan 10 MG/2 ML ONE (18:32)
[2023-03-31] MEDS ORDERED: TYLENOL 325 MG ONE (18:32)
[2023-03-31] MEDS ORDERED: BENADRYL 50 MG/ML ONE (18:32)
--- NOTE | 2023-03-31 18:56 | ERPHSYRPT ---
- History of Present Illness Source: patient Exam Limitations: no limitations Patient Subjective Stated Complaint: Pt reports today at approx 1pm she started experiencing a headache, and later pain in left arm. She reports she has been out of her migraine medicine for a week and was told she has carpal tunnel but was concerned so came to ED. Triage Nursing Assessment: Pt alert and oriented x3. No apparent respiratory distress. Ambulated to ED cot without difficulty. No facial droop. Thoughts organized. 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 No drift of upper or lower ex tremities. Timing/Duration: hour(s) (4), constant, gradual onset, worse Severity: moderate Character of Deficits: Left Facial, vision problems Deficits: no difficulties Baseline/Normal Cognition: alert oriented x 3 Current Cognition: alert oriented x 3 Baseline Gait: walks w/o assistance Associated Symptoms: fatigue, weakness (Left upper extremity), paresthesia (Left face), headache, No loss of consciousness Hx Tetanus, Diphtheria Vaccination/Date Given: Yes Hx Influenza Vaccination/Date Given: Yes Hx Pneumococcal Vaccination/Date Given: No <AMAURY CRANDALL - Last Filed: 03/31/23 19:46> <KAITLYN ESPINAL - Last Filed: 03/31/23 20:59> - History of Present Illness Time Seen by Provider: 03/31/23 16:28 Physician History: 37-year-old female with history of migraines presented in the ER with chief complaint of sudden onset left-sided headache with numbness and weakness in the left face/left upper extremity. 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 She does report having left facial numbness but no difficulty speech. No difficulty ambulation. Rates 6/10 left-sided headache and denies having similar symptoms in the past with migraine. (AMAURY CRANDALL) Allergies/Adverse Reactions: No Known Drug Allergies Allergy (Verified 03/31/23 16:04) Home Medications: Fluoxetine HCl 20 mg [Prozac 20 MG] 60 mg PO DAILY 06/13/22 [History] Lisinopril 20 mg [Zestril 20 MG] 20 mg PO DAILY 06/13/22 [History] Lorazepam 0.5 mg [Ativan 0.5 MG] 0.5 mg PO HS 06/13/22 [History] Metoprolol Succinate 25 mg Xl* [Toprol-Xl 25MG Tablets] 25 mg PO DAILY 06/13/22 [History] Omeprazole 40 mg PO DAILY 06/13/22 [History] Rimegepant Sulfate [Nurtec Odt] 75 mg PO DAILY 06/13/22 [History] Olanzapine [Olanzapine Odt] 5 mg PO DAILY 07/04/22 [History] Travel Risk - International Travel Have you traveled outside of the country in past 3 weeks: No - Coronavirus Screening Are you exhibiting any of the following symptoms?: No Close contact with a COVID-19 positive Pt in past 14-21 Days: No - Vaccine Status Have you recieved a Covid-19 vaccination: No <AMAURY CRANDALL - Last Filed: 03/31/23 19:46> - Review of Systems Constitutional: Weakness Eyes: Vision Changes Ears, Nose, & Throat: No Symptoms Respiratory: No Symptoms Cardiac: No Symptoms Abdominal/Gastrointestinal: No Symptoms Genitourinary Symptoms: No Symptoms Musculoskeletal: No Symptoms Skin: No Symptoms Neurological: Dizziness, Headache, Paralysis, Parasthesia Psychological: No Symptoms Endocrine: No Symptoms Hematologic/Lymphatic: No Symptoms Immunological/Allergic: No Symptoms <AMAUYR CRANDALL - Last Filed: 03/31/23 19:46> - Past Medical History Pertinent Past Medical History: Yes Neurological History: Migraines ENT History: No Pertinent History Cardiac History: Hypertension Respiratory History: No Pertinent History Endocrine Medical History: No Pertinent History Musculoskeletal History: Arthritis GI Medical History: GERD History: No Pertinent History Psycho-Social History: Anxiety, Bipolar, Depression Female Reproductive Disorders: No Pertinent History Other Medical History: fibromyalgia - Past Surgical History Past Surgical History: Yes Neuro Surgical History: No Pertinent History Cardiac: No Pertinent History Respiratory: No Pertinent History Gastrointestinal: Cholecystectomy Genitourinary: No Pertinent History Musculoskeletal: Joint Replacement Female Surgical History: Tubal Ligation Other Surgical History: R knee - Social History Smoking Status: Former smoker Exposure to second hand smoke: No Drug Use: none Patient Lives Alone: No - Female History Hx Last Menstrual Period: 03/23/23 Hx Now: No <AMAURY CRANDALL - Last Filed: 03/31/23 19:46> - Sarah Coma Scale Best Eye Response (Half Way): (4) open spontaneously Best Verbal Response (Sarah): (5) oriented Best Motor Response (Half Way): (6) obeys commands Half Way Total: 15 - Physical Exam General Appearance: no apparent distress, alert Eye Exam: left eye: other (Left upper and lower lateral vision loss), bilateral eye: normal inspection, PERRL, EOMI Ears, Nose, Throat Exam: normal ENT inspection, TMs normal, pharynx normal, moist mucous membranes Neck Exam: normal inspection, non-tender, supple, full range of motion Respiratory: normal breath sounds, lungs clear Cardiovascular: regular rate/rhythm, normal heart sounds Gastrointestinal: soft, No tenderness Back Exam: normal inspection, normal range of motion, No CVA tenderness Extremity Exam: normal inspection, normal range of motion, pelvis stable Mental Status: alert, oriented x 3, 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 Exam: normal hearing, normal speech, PERRL, No facial asymmetry, No facial droop, No facial weakness Coordination/Gait: normal finger to nose, normal gait, normal cerebellar function Motor/Sensory: negative Babinski's sign DTR: bicep (R): 2+, bicep (L): 2+, knee (R): 2+, knee (L): 2+ Skin Exam: normal color SpO2 Interpretation: normal SpO2: 97 O2 Delivery: Room Air <AMAURY CRANDALL - Last Filed: 03/31/23 19:46> - Nursing Vital Signs Nursing Vital Signs: Initial Vital Signs Pulse Rate 81 03/31/23 15:57 Respiratory Rate 16 03/31/23 15:57 Blood Pressure 116/81 03/31/23 15:57 O2 Sat by Pulse Oximetry 97 03/31/23 15:57 Pain Scale Pain Intensity 4 - Course EKG Interpreted by Me: RATE (87), Sinus Rhythm, NORMAL AXIS, NORMAL INTERVALS, NORMAL QRS <AMAURY CRANDALL - Last Filed: 03/31/23 19:46> Ordered Tests: Active Orders 24 hr Category Date Time Status Process Development Engineer STAT Care 03/31/23 17:11 Active EKG-ER Only STAT Care 03/31/23 17:10 Active IV Insertion STAT Care 03/31/23 17:10 Active NPO (ED) STAT Care 03/31/23 17:[address] ANGIOGRAPHY NECK [CT] Stat Exams 03/31/23 17:57 Completed CTA HEAD W AND/OR WO CONTRAST [CT] Stat Exams 03/31/23 17:57 Completed HEAD WITHOUT CONTRAST [CT] Stat Exams 03/31/23 17:44 Completed CBC W DIFF Stat Lab 03/31/23 17:34 Completed CMP Stat Lab 03/31/23 17:34 Completed TROPONIN Q4H Lab 03/31/23 17:34 Completed TROPONIN Q4H Lab 03/31/23 21:15 Ordered TROPONIN Q4H Lab 04/01/23 01:15 Ordered UA W/RFX UR CULTURE Stat Lab 03/31/23 17:34 Completed Transfer Order Routine Transfer 03/31/23 Ordered Medication Summary Discontinued Medications Generic Name Dose Route Start Last Admin Trade Name Leonq PRN Reason Stop Dose Admin Acetaminophen 975 mg 03/31/23 18:13 03/31/23 18:33 Acetaminophen 325 Mg Tablet PO 03/31/23 18:14 975 mg STAT ONE Administration Acetaminophen Confirm 03/31/23 18:32 Acetaminophen 325 Mg Tablet Administered 03/31/23 18:33 Dose 975 mg .ROUTE .STK-MED ONE Diphenhydramine HCl 25 mg 03/31/23 18:13 03/31/23 18:33 Diphenhydramine Hcl 50 Mg/Ml Vial IV 03/31/23 18:14 25 mg STAT ONE Administration Diphenhydramine HCl Confirm 03/31/23 18:32 Diphenhydramine Hcl 50 Mg/Ml Vial Administered 03/31/23 18:33 Dose 50 mg .ROUTE .STK-MED ONE Sodium Chloride 1,000 mls @ 999 mls/hr 03/31/23 17:10 03/31/23 18:19 Sodium Chloride 0.9% 1000 Ml IV 03/31/23 18:10 Infused .Q1H1M STA Infusion Sodium Chloride Confirm 03/31/23 17:16 Sodium Chloride 0.9% 1000 Ml Administered 03/31/23 17:17 Dose 1,000 mls @ ud .ROUTE .STK-MED ONE Metoclopramide HCl 10 mg 03/31/23 18:13 03/31/23 18:33 Metoclopramide Hcl 10 Mg/2 Ml Vial IV 03/31/23 18:14 10 mg STAT ONE Administration Metoclopramide HCl Confirm 03/31/23 18:32 Metoclopramide Hcl 10 Mg/2 Ml Vial Administered 03/31/23 18:33 Dose 10 mg .ROUTE .K-MED ONE Lab/Rad Data: Laboratory Result Diagrams 03/31/23 17:34 03/31/23 17:34 Laboratory Results 03/31/23 03/31/23 03/31/23 Range/Units 17:34 17:34 17:34 WBC 11.3 H (4.0-10.5) x10^3/uL RBC 4.58 (4.1-5.4) x10^6/uL Hgb 12.8 (12.0-16.0) g/dL Hct 40.5 (35-47) % MCV 88.4 (78-100) fL MCH 27.9 (26-32) pg MCHC 31.6 L (32-36) g/dL RDW 13.4 (11.5-14.0) % Plt Count 417 (150-450) x10^3/uL MPV 9.6 (7.5-11.0) fL Gran % 63.9 (36.0-66.0) % Immature Gran % (Auto) 0.4 (0.00-0.4) % Nucleat RBC Rel Count 0.0 (0.00-0.1) % Eos # (Auto) 0.10 (0-0.5) x10^3/uL Immature Gran # (Auto) 0.05 H (0.00-0.03) x10^3u/L Absolute Lymphs (auto) 3.09 (1.0-4.6) x10^3/uL Absolute Monos (auto) 0.79 (0.0-1.3) x10^3/uL Absolute Nucleated RBC 0.00 (0.00-0.01) x10^3u/L Lymphocytes % 27.3 (24.0-44.0) % Monocytes % 7.0 (0.0-12.0) % Eosinophils % 0.9 (0.00-5.0) % Basophils % 0.5 (0.0-0.4) % Absolute Granulocytes 7.23 H (1.4-6.9) x10^3/uL Basophils # 0.06 (0-0.4) x10^3/uL Sodium 141 (137-145) mmol/L Potassium 4.1 (3.5-5.1) mmol/L Chloride 110 H (98-107) mmol/L Carbon Dioxide 18 L (22-30) mmol/L Anion Gap 16.7 H (5-15) MEQ/L BUN 18 H (7-17) mg/dL Creatinine 0.95 (0.52-1.04) mg/dL Estimated GFR > 60.0 ML/MIN Glucose 94 (74-106) mg/dL Calcium 8.6 (8.4-10.2) mg/dL Total Bilirubin 0.30 (0.2-1.3) mg/dL AST 22 (14-36) U/L ALT 31 (0-35) U/L Alkaline Phosphatase 100 (38-126) U/L Troponin I < 0.012 (0.000-0.034) ng/mL Serum Total Protein 7.8 (6.3-8.2) g/dL Albumin 4.3 (3.5-5.0) g/dL Urine Color (Yellow) Urine Appearance (Clear) Urine pH (4.6-8.0) Ur Specific [place] (1.005-1.030) Urine Protein (Negative) Urine Glucose (UA) (Negative) mg/dL Urine Ketones (Negative) Urine Blood (Negative) Urine Nitrite (Negative) Urine Bilirubin (Negative) Urine Urobilinogen (0.2) mg/dL Ur Leukocyte Esterase (Negative) U Hyaline Cast (Auto) (0-2) /LPF Urine Microscopic RBC (0-5) /HPF Urine Microscopic WBC (0-5) /HPF Ur Epithelial Cells (None Seen) /HPF Urine Bacteria (None Seen) /HPF Urine Culture Reflexed (NO) 03/31/23 Range/Units 17:34 WBC (4.0-10.5) x10^3/uL RBC (4.1-5.4) x10^6/uL Hgb (12.0-16.0) g/dL Hct (35-47) % MCV (78-100) fL MCH (26-32) pg MCHC (32-36) g/dL RDW (11.5-14.0) % Plt Count (150-450) x10^3/uL MPV (7.5-11.0) fL Gran % (36.0-66.0) % Immature Gran % (Auto) (0.00-0.4) % Nucleat RBC Rel Count (0.00-0.1) % Eos # (Auto) (0-0.5) x10^3/uL Immature Gran # (Auto) (0.00-0.03) x10^3u/L Absolute Lymphs (auto) (1.0-4.6) x10^3/uL Absolute Monos (auto) (0.0-1.3) x10^3/uL Absolute Nucleated RBC (0.00-0.01) x10^3u/L Lymphocytes % (24.0-44.0) % Monocytes % (0.0-12.0) % Eosinophils % (0.00-5.0) % Basophils % (0.0-0.4) % Absolute Granulocytes (1.4-6.9) x10^3/uL Basophils # (0-0.4) x10^3/uL Sodium (137-145) mmol/L Potassium (3.5-5.1) mmol/L Chloride (98-107) mmol/L Carbon Dioxide (22-30) mmol/L Anion Gap (5-15) MEQ/L BUN (7-17) mg/dL Creatinine (0.52-1.04) mg/dL Estimated GFR ML/MIN Glucose (74-106) mg/dL Calcium (8.4-10.2) mg/dL Total Bilirubin (0.2-1.3) mg/dL AST (14-36) U/L ALT (0-35) U/L Alkaline Phosphatase (38-126) U/L Troponin I (0.000-0.034) ng/mL Serum Total Protein (6.3-8.2) g/dL Albumin (3.5-5.0) g/dL Urine Color Yellow (Yellow) Urine Appearance Clear (Clear) Urine pH 7.0 (4.6-8.0) Ur Specific [place] 1.025 (1.005-1.030) Urine Protein Negative (Negative) Urine Glucose (UA) Negative (Negative) mg/dL Urine Ketones Negative (Negative) Urine Blood Negative (Negative) Urine Nitrite Negative (Negative) Urine Bilirubin Negative (Negative) Urine Urobilinogen 1.0 A (0.2) mg/dL Ur Leukocyte Esterase Trace A (Negative) U Hyaline Cast (Auto) NONE SEEN (0-2) /LPF Urine Microscopic RBC 0-2 (0-5) /HPF Urine Microscopic WBC 0-2 (0-5) /HPF Ur Epithelial Cells Few (None Seen) /HPF Urine Bacteria None Seen (None Seen) /HPF Urine Culture Reflexed NO (NO) <AMAURY CRANDALL - Last Filed: 03/31/23 19:46> - Progress Progress: improved, pain not gone completely, re-examined Discussed with DrDarek: Other Counseled pt/family regarding: lab results, diagnosis, need for follow-up, rad results <KAITLYN ESPINAL - Last Filed: 03/31/23 20:59> - Progress Progress Note: 03/31/23 19:46 Stroke work-up is ordered with negative CT and CTAs, neuro evaluation is pending, care is transferred to Dr. Espinal at shift change for reevaluation and final disposition. (AMAURY CRANDALL) 03/31/23 20:50 This patient's medical issue is [address] Beauchamp, the teleneurologist does not feel that this patient has stroke but has atypical migraine headache. However because she still having pain and heaviness in the left upper extremity, we will follow serial troponin levels, repeat twelve-lead EKG in the morning, keep the patient on telemetry and order a CT scan with and without of the brain and CT scan of the cervical spine. These were the teleneurologist recommendations. I spoke with Dr. Antonio and I reviewed the work-up results and the recommendations by the teleneurologist. He agrees to place the patient in observation. (KAITLYN ESPINAL) Medical Desision Making - Discussion of managment Care discussed with:: specialist (Dr. Beauchamp is the teleneurologist. In addition I spoke with the on-call doctor, Dr. Antonio he agrees to place the patient in observation) Reviewed:: Test results, Need for additional workup Agreed on:: Treatment plan, place in obs Will see patient: in hospital - Diagnostic Testing Radiological Interpretation: Reviewed by me, Teleradiologist Report, Other (Discussed with on-call doctor and telemetry neurologist) - Risk of complications The pt has a high risk of morbidity or mortality based on: Decision regarding hospitilization or escalation of hosp level of care <KAITLYN ESPINAL - Last Filed: 03/31/23 20:59> <AMAURY CRANDALL - Last Filed: 03/31/23 19:46> - Departure Departure Disposition: Observation Critical Care Time: No <KAITLYN ESPINAL - Last Filed: 03/31/23 20:59> - Departure Clinical Impression: Atypical migraine Condition: Stable Referrals: [facility] [Primary Care Provider] - Follow up/PCP as directed
--- NOTE | 2023-03-31 19:05 | XRAY ---
CLINICAL HISTORY:Stroke-like sx. Headache with left side numbness- lt hand numbness; COMPARISON:None; TECHNIQUES:Contiguous, multislice, CT angiography of the cerebral arteries was performed with contrast in the axial plane with multiplanar and 3D reconstructions. 100 cc of Isovue 370 mg given as IV contrast. Total DLP-667.96 mGy*cm; CTDI-22.58 mGy; FINDINGS: Normal course and caliber of distal internal carotid arteries and their branches on both sides with no detectable occlusion or significant luminal stenosis. Within normal opacification of the cerebral arteries forming the [place] with no significant stenosis or arterial occlusion. Normal CTA appearance of vertebrobasilar system with no significant stenosis or extrinsic compression noted. No detectable intracranial aneurysms or arteriovenous malformation. Normal harrison and white matter differentiation. No intracranial hemorrhage. No evidence of recent/acute infarcts. Posterior fossa appears unremarkable. Visualized paranasal sinuses show opacification in the left maxillary sinus with defect in the medial wall of maxillary sinus on both sides, possibly related to prior surgical intervention. Septal perforation defect seen. Deflected nasal septum towards right side. IMPRESSION: 1. Grossly unremarkable CT angiography of the cerebral arteries. 2. No evidence of occlusion, significant stenosis or aneurysmal lesion. Electronically Signed by: Cullen Esparza MD. (03/31/2023 18:02:23 CREATIVE WRITING TEACHER)
--- NOTE | 2023-03-31 19:07 | XRAY ---
CLINICAL HISTORY:Stroke like sx. Headache with left side numbness- lt hand numbness; COMPARISON:None; TECHNIQUES:Contiguous, multislice, CT angiography of the carotid and vertebral arteries was performed with contrast in the axial plane with multiplanar and 3D reconstructions. 100 cc of Isovue 370 mg given as IV contrast. Total DLP-667.96 mGy*cm; CTDI-22.58 mGy; FINDINGS: Bilateral CCA, ECA and extracranial ICA are patent. No evidence of hemodynamically significant stenosis or occlusion. Bilateral vertebral arteries are patent. No obvious plaque. IMPRESSION: No evidence of hemodynamically significant stenosis or occlusion of extracranial carotid system. Electronically Signed by: Cullen Esparza MD. (03/31/2023 18:04:09 HEAD FILTER TANK TENDER HELPER)
[2023-03-31] MEDS ORDERED: Sodium Chloride 0.9% 1000 ML 1,000 ML IV SCH (23:08)
[2023-03-31] MEDS ORDERED: MORPHINE SULFATE 2 MG INJ IV PRN (23:08)
[2023-03-31] MEDS ORDERED: Zofran 4 MG/2 ML VIAL IV PRN (23:08)
[2023-03-31] MEDS ORDERED: TYLENOL 325 MG PO PRN (23:08)
[2023-04-01] MEDS ORDERED: CLONIDINE 0.1 MG TABLET PO SCH (00:19)
[2023-04-01] MEDS ORDERED: lamICTAL 100MG TABLET PO SCH (00:20)
[2023-04-01] MEDS ORDERED: MAG-OX 400 PO SCH ×2 (00:20→10:00)
[2023-04-01] MEDS ORDERED: Toprol-Xl 25MG Tablets PO SCH (00:21)
[2023-04-01] MEDS: Cymbalta 30 MG Capsule PO SCH ×2 (01:21→08:29)
[2023-04-01] MEDS: NEURONTIN PO SCH ×3 (01:22→15:04)
[2023-04-01] MEDS: TOPIRAMATE PO SCH ×2 (01:25→08:28)
[2023-04-01] MEDS: OXYCODONE-ACETAMINOPHEN 10-325 PO SCH ×2 (01:25→08:28)
[2023-04-01 02:03] LABS: Absolute Neutrophil Ct (ANC) 5.69 x10^3/uL (1.4-6.9); BASOPHIL % 0.6 % (0.0-0.4); Basophil (Absolute #) 0.06 x10^3/uL (0-0.4); Eosinophil % 1.2 % (0.00-5.0); Eosinophil (Absolute #) 0.12 x10^3/uL (0-0.5); Hematocrit 36.1 % (35-47); Hemoglobin 11.6 g/dL (12.0-16.0); IMMATURE GRAN # 0.03 x10^3u/L (0.00-0.03); IMMATURE GRAN % 0.3 % (0.00-0.4); Lymphocyte (Absolute #) 3.62 x10^3/uL (1.0-4.6); Lymphocytes % 35.9 % (24.0-44.0); Mean Cell Volume 87.8 fL (78-100); Mean Corpuscular Hemoglobin 28.2 pg (26-32); Mean Corpuscular Hgb Concent. 32.1 g/dL (32-36); Mean Platelet Volume 9.7 fL (7.5-11.0); Monocyte (Absolute #) 0.56 x10^3/uL (0.0-1.3); Monocytes % 5.6 % (0.0-12.0); Neutrophil % 56.4 % (36.0-66.0); Platelet Count 358 x10^3/uL (150-450); Red Blood Count 4.11 x10^6/uL (4.1-5.4); Red Cell Distribution Width 13.5 % (11.5-14.0); White Blood Count 10.1 x10^3/uL (4.0-10.5)
[2023-04-01] MEDS ORDERED: MEDICATION INTERVENTION MC SCH (09:15)
[2023-04-01] MEDS ORDERED: NON-FORMULARY ITEM (Rimegepant Sulfate [Nurtec Odt] 75 MG Tab.Rapdis) PO SCH (10:00)
[2023-04-01] MEDS ORDERED: Zestril 20 MG PO SCH (10:00)
[2023-04-01] MEDS ORDERED: Protonix 40MG Tablet PO SCH (10:00)
[2023-04-01] MEDS ORDERED: NON-FORMULARY ITEM (Esomeprazole Magnesium [Nexium] 40 MG Suspdr.Pkt) PO SCH (10:00)
--- NOTE | 2023-04-01 15:07 | XRAY ---
Indication: Severe headache. Left facial numbness. Sagittal, coronal, and axial MRI brain performed pre and post T1, T2, FLAIR, diffusion, and ADC sequences. 20 cc Dotarem contrast used. Comparison: None Ventriculosulcal pattern appears symmetric. No acute intracranial hemorrhage, abnormal extra-axial fluid collection, or mass effect. Diffusion images are negative for restricted signal. Following gadolinium, no abnormal enhancing intra or extra-axial mass. Fourth ventricle is midline without hydrocephalus. 7/8 cranial nerve complex bilaterally symmetric. Normal flow void signal within the major intracerebral circulation. Incidental empty sella. Normal appearing craniocervical junction. Near-complete mucosal thickening left maxillary sinus. Impression: Left maxillary sinus disease and empty sella. Remaining MRI brain with contrast exam is normal.
--- NOTE | 2023-04-01 15:11 | XRAY ---
Indication: Severe headache. Left facial numbness. Sagittal and axial MRI cervical spine performed T1 and T2-weighted sequences. Comparison: None Sagittal images demonstrates normal cervical alignment. Minimal C2-C7 degenerative disc dehydration signal with little to no disc space narrowing. Spinal cord is normal in course and caliber without signal abnormality. No acute fracture, suspicious bony lesions, or abnormal bone marrow signal. Normal appearing craniocervical junction. Axial images through the C2-T1 disc levels are negative for disc herniation, spinal canal, or foraminal stenosis. Impression: Negative MRI cervical spine without contrast exam.
[2023-04-01 17:17] VITALS: BP 122/58; PULSE 61; O2SAT 100
--- NOTE | 2023-04-02 07:46 | PCM.SSS ---
History of Present Illness - Chief Complaint Chief Complaint: headache with weakness for 1 day History of Present Illness: is a 37 year old female.with history of migraines presented in the ER with chief complaint of sudden onset left-sided headache with numbness and weakness in the left face/left upper extremity. Patient reports she feels heaviness in the left arm and has to use right hand to lift left arm up, has weak set off blocker and noticed left-sided peripheral vision loss. She does report having left facial numbness but no difficulty speech. No difficulty ambulation. Rates 6/10 left-sided headache and denies having similar symptoms in the past with migraine. - Review of Systems Constitutional: No Fever, No Chills Eyes: No Symptoms Ears, Nose, & Throat: No Symptoms Respiratory: No Cough, No Short Of Breath Cardiac: No Chest Pain, No Edema, No Syncope Abdominal/Gastrointestinal: No Abdominal Pain, No Nausea, No Vomiting, No Diarrhea Genitourinary Symptoms: No Dysuria Musculoskeletal: No Back Pain, No Neck Pain Skin: No Rash Neurological: Headache, No Dizziness, No Focal Weakness, No Sensory Changes Psychological: No Symptoms Endocrine: No Symptoms Hematologic/Lymphatic: No Symptoms Immunological/Allergic: No Symptoms Medications & Allergies Home Medications: Home Medication List Lisinopril 20 mg [Zestril 20 MG] 20 mg PO DAILY 06/13/22 [History Confirmed 03/31/23] Metoprolol Succinate 25 mg Xl* [Toprol-Xl 25MG Tablets] 25 mg PO HS 06/13/22 [History Confirmed 03/31/23] Rimegepant Sulfate [Nurtec Odt] 75 mg PO DAILY 06/13/22 [History Confirmed 03/31/23] Clonidine HCl 0.1 mg [Clonidine 0.1 mg Tablet] 0.1 mg PO HS 03/31/23 [History Confirmed 03/31/23] Duloxetine HCl 30 mg [Cymbalta 30 MG Capsule] 30 mg PO BID 03/31/23 [History Confirmed 03/31/23] Esomeprazole Magnesium [Nexium] 40 mg PO DAILY 03/31/23 [History Confirmed 03/31/23] Gabapentin [Neurontin] 300 mg PO TID 03/31/23 [History Confirmed 03/31/23] Magnesium Oxide 250 mg PO BID 03/31/23 [History Confirmed 03/31/23] Oxycodone HCl/Acetaminophen [Percocet 10-325 mg Tablet] 1 tab PO BID 03/31/23 [History Confirmed 03/31/23] Topiramate [Topiramate ER] 150 mg PO BID 03/31/23 [History Confirmed 03/31/23] lamoTRIgine [Lamictal] 150 mg PO HS 03/31/23 [History Confirmed 03/31/23] Allergies/Adverse Reactions: Allergies Allergy/AdvReac Type Severity Reaction Status Date / Time No Known Drug Allergies Allergy Verified 03/31/23 16:04 - Past Medical History Past Medical History: Yes Neurological History: Migraines ENT History: No Pertinent History Cardiac History: Hypertension Respiratory History: No Pertinent History Endocrine Medical History: No Pertinent History Musculoskelatal History: Arthritis GI Medical History: GERD History: No Pertinent History Pyscho-Social History: Anxiety, Bipolar, Depression Reproductive Disorders: No Pertinent History Comment: fibromyalgia - Female History Hx Last Menstrual Period: 03/15/23 Are you now?: No - Past Surgical History Past Surgical History: Yes Neuro Surgical History: No Pertinent History Cardiac History: No Pertinent History Respiratory Surgery: No Pertinent History GI Surgical History: Cholecystectomy Genitourinary Surgical Hx: No Pertinent History Musculskeletal Surgical Hx: Joint Replacement Female Surgical History: Tubal Ligation Other Surgical History: R knee - Social History Smoking Status: Former smoker Exposure to second hand smoke: No Alcohol: None Drug Use: none - Physical Exam Vital Signs: Vital Signs - 24 hr Temp Pulse Resp BP Pulse Ox 04/01/23 16:00 97.0 F 61 17 122/58 100 04/01/23 12:00 97.1 F 62 18 109/65 97 General Appearance: no apparent distress, alert Neurologic Exam: alert, oriented x 3, cooperative, normal mood/affect, nml cerebellar function, nml station & gait, sensation nml, No motor deficits Eye Exam: PERRL/EOMI, eyes nml inspection Ears, Nose, Throat Exam: normal ENT inspection, TMs normal, pharynx normal, moist mucous membranes Neck Exam: normal inspection, non-tender, supple, full range of motion Respiratory Exam: normal breath sounds, lungs clear, No respiratory distress Cardiovascular Exam: regular rate/rhythm, normal heart sounds, normal peripheral pulses Gastrointestinal/Abdomen Exam: soft, normal bowel sounds, No tenderness, No mass Back Exam: normal inspection, normal range of motion, No CVA tenderness, No vertebral tenderness Extremity Exam: normal inspection, normal range of motion, pelvis stable Skin Exam: normal color, warm, dry, No rash Lymphatic Exam: No adenopathy Results - Radiology Impressions Radiology Exams & Impressions: Radiology Procedures Category Date Time Status CT ANGIOGRAPHY NECK [CT] Stat Exams 03/31/23 17:57 Completed CTA HEAD W AND/OR WO CONTRAST [CT] Stat Exams 03/31/23 17:57 Completed HEAD WITHOUT CONTRAST [CT] Stat Exams 03/31/23 17:44 Completed MRI BRAIN W & W/O CONTRAST [MRI] Stat Exams 04/01/23 23:08 Completed MRI C-SPINE W/O CONTRAST [MRI] Stat Exams 04/01/23 23:08 Completed MRI/MRI BRAIN W & W/O CONTRAST Indication: Severe headache. Left facial numbness. Sagittal, coronal, and axial MRI brain performed pre and post T1, T2, FLAIR, diffusion, and ADC sequences. 20 cc Dotarem contrast used. Comparison: None Ventriculosulcal pattern appears symmetric. No acute intracranial hemorrhage, abnormal extra-axial fluid collection, or mass effect. Diffusion images are negative for restricted signal. Following gadolinium, no abnormal enhancing intra or extra-axial mass. Fourth ventricle is midline without hydrocephalus. 7/8 cranial nerve complex bilaterally symmetric. Normal flow void signal within the major intracerebral circulation. Incidental empty sella. Normal appearing craniocervical junction. Near-complete mucosal thickening left maxillary sinus. Impression: Left maxillary sinus disease and empty sella. Remaining MRI brain with contrast exam is normal Assessment/Plan (1) Atypical migraine Status: Acute Code(s): G43.009 - MIGRAINE W/O AURA, NOT INTRACTABLE, W/O STATUS MIGRAINOSUS (2) Chronic sinusitis of both maxillary sinuses Status: Acute Code(s): J32.0 - CHRONIC MAXILLARY SINUSITIS (3) COVID-19 virus infection Status: Acute Code(s): U07.1 - COVID-19 Hospital Summary - Hospital Course Hospital Course: Chief Complaint Diagnosis headache Allergies Allergy/AdvReac Type Severity Reaction Status Date / Time No Known Drug Allergies Allergy Verified 03/31/23 16:04 Vital Signs (Last 24 hours) Temp Pulse Resp BP Pulse Ox 04/01/23 16:00 97.0 F 61 17 122/58 100 05/22/23 12:00 97.1 F 62 18 109/65 97 Home Medications Medication Instructions Recorded Confirmed Last Taken Type Clonidine HCl 0.1 mg [Clonidine 0.1 mg PO HS 03/31/23 03/31/23 03/30/23 21:00 History 0.1 mg Tablet] Duloxetine HCl 30 mg [Cymbalta 30 mg PO BID 03/31/23 03/31/23 03/31/23 09:00 History 30 MG Capsule] Esomeprazole Magnesium [Nexium] 40 mg PO DAILY 03/31/23 03/31/23 03/31/23 09:00 History Gabapentin [Neurontin] 300 mg PO TID 03/31/23 03/31/23 03/31/23 13:00 History Magnesium Oxide 250 mg PO BID 03/31/23 03/31/23 03/31/23 09:00 History Oxycodone HCl/Acetaminophen 1 tab PO BID 03/31/23 03/31/23 03/31/23 09:00 History [Percocet 10-325 mg Tablet] Topiramate [Topiramate ER] 150 mg PO BID 03/31/23 03/31/23 03/31/23 09:00 History lamoTRIgine [Lamictal] 150 mg PO HS 03/31/23 03/31/23 03/30/23 21:00 History Current Medications Discontinued Medications Generic Name Dose Route Start Last Admin Trade Name Freq PRN Reason Stop Dose Admin Acetaminophen 975 mg 03/31/23 18:13 03/31/23 18:33 Acetaminophen 325 Mg Tablet PO 03/31/23 18:14 975 mg STAT ONE Administration Acetaminophen Confirm 03/31/23 18:32 Acetaminophen 325 Mg Tablet Administered 03/31/23 18:33 Dose 975 mg .ROUTE .STK-MED ONE Acetaminophen 650 mg 03/31/23 23:08 Acetaminophen 325 Mg Tablet PO 04/30/23 23:07 Q4H PRN PRN PAIN, FEVER, HEADACHE Clonidine 0.1 mg 04/01/23 00:19 04/01/23 01:21 Clonidine Hcl 0.1 Mg Tablet PO 05/01/23 00:18 0.1 mg HS JOY Administration Diphenhydramine HCl 25 mg 03/31/23 18:13 03/31/23 18:33 Diphenhydramine Hcl 50 Mg/Ml Vial IV 03/31/23 18:14 25 mg STAT ONE Administration Diphenhydramine HCl Confirm 03/31/23 18:32 Diphenhydramine Hcl 50 Mg/Ml Vial Administered 03/31/23 18:33 Dose 50 mg .ROUTE .STK-MED ONE Duloxetine HCl 30 mg 04/01/23 00:18 04/01/23 08:29 Duloxetine Hcl 30 Mg Cap PO 05/01/23 00:17 30 mg BID JOY Administration Gabapentin 300 mg 04/01/23 00:19 04/01/23 15:04 Gabapentin 300 Mg Capsule PO 05/01/23 00:18 300 mg TID JOY Administration Sodium Chloride 1,000 mls @ 999 mls/hr 03/31/23 17:10 03/31/23 18:19 Sodium Chloride 0.9% 1000 Ml IV 03/31/23 18:10 Infused .Q1H1M STA Infusion Sodium Chloride Confirm 03/31/23 17:16 Sodium Chloride 0.9% 1000 Ml Administered 03/31/23 17:17 Dose 1,000 mls @ ud .ROUTE .STK-MED ONE Sodium Chloride 1,000 mls @ 35 mls/hr 03/31/23 23:08 Sodium Chloride 0.9% 1000 Ml IV 04/30/23 23:07 .Q24H JOY Lamotrigine 150 mg 04/01/23 00:20 04/01/23 01:22 Lamotrigine 100 Mg Tab PO 05/01/23 00:19 150 mg HS JOY Administration Lisinopril 20 mg 04/01/23 10:00 04/01/23 10:27 Lisinopril 20 Mg Tablet PO 05/01/23 09:59 20 mg DAILY JOY Administration Magnesium Oxide 250 mg 04/01/23 00:20 04/01/23 01:23 Magnesium Oxide 400 Mg Tablet PO 05/01/23 00:19 200 mg BID JOY Administration Magnesium Oxide 200 mg 04/01/23 10:00 04/01/23 08:29 Magnesium Oxide 400 Mg Tablet PO 05/01/23 00:19 200 mg BID JOY Administration Metoclopramide HCl 10 mg 03/31/23 18:13 03/31/23 18:33 Metoclopramide Hcl 10 Mg/2 Ml Vial IV 03/31/23 18:14 10 mg STAT ONE Administration Metoclopramide HCl Confirm 03/31/23 18:32 Metoclopramide Hcl 10 Mg/2 Ml Vial Administered 03/31/23 18:33 Dose 10 mg .ROUTE .STK-MED ONE Metoprolol Succinate 25 mg 04/01/23 00:21 04/01/23 01:24 Metoprolol Succinate 25 Mg Xl Tab PO 05/01/23 00:20 25 mg HS JOY Administration Miscellaneous Information 1 each 04/01/23 09:15 Medication Intervention 1 Each Each 05/01/23 09:14 .RN TO CHECK JOY Morphine Sulfate 2 mg 03/31/23 23:08 Morphine Sulfate 2 Mg/Ml Inj IV 04/05/23 23:07 Q2H PRN PRN PAIN Ondansetron HCl 4 mg 03/31/23 23:08 Ondansetron Hcl 4 Mg/2 Ml Vial IV 04/30/23 23:07 Q6H PRN PRN NAUSEA/VOMITING Oxycodone/Acetaminophen 1 tab 04/01/23 00:22 04/01/23 08:28 Oxycodone / Apap 10/325 Mg 1 Tablet PO 04/06/23 00:21 1 tab BID JOY Administration Pantoprazole Sodium 40 mg 04/01/23 10:00 04/01/23 10:27 Protonix (Pantoprazole) 40 Mg Tablet PO 05/01/23 09:59 40 mg DAILY JOY Administration Topiramate 150 mg 04/01/23 00:23 04/01/23 08:28 Topiramate 50 Mg Tablet PO 05/01/23 00:22 150 mg BID JOY Administration Intake & Output (Last 24 hours) 03/30/23 03/31/23 04/01/23 04/02/23 11:59 11:59 11:59 11:59 Intake Total 840 Balance 840 Weight 100.2 kg Orders (Last 24 hours) Category Date Time Status Heart-Healthy Diet Diet 04/01/23 Breakfast Completed MRI BRAIN W & W/O CONTRAST [MRI] Stat Exams 04/01/23 23:08 Completed MRI C-SPINE W/O CONTRAST [MRI] Stat Exams 04/01/23 23:08 Completed Lisinopril 20 mg [Zestril 20 MG] Med 04/01/23 10:00 Discontinued 20 mg PO DAILY Magnesium Oxide 400 mg [Mag-Ox 400] Med 04/01/23 10:00 Discontinued 200 mg PO BID Medication Intervention Med 04/01/23 09:15 Discontinued 1 each MC .RN TO CHECK PANTOPRAZOLE 40 mg Tablet [Protonix 40MG Tablet] Med 04/01/23 10:00 Discontinued 40 mg PO DAILY Patient Care Notes (Last 24 hours) 04/01/23 16:11 Nursing Note by Mahogany Patino PATIENT LEFT WITH SPOUSE ON DISCHARGE -- AWARE OF RESOURCES FOR FOOD. RECORDS FAXED TO PCP, PATIENT VERBALIZES UNDERSTANDING OF FOLLOW UP APPOINTMENTS Initialized on 04/01/23 16:11 - END OF NOTE - Vitals & Intake/Output Vital Signs: Vital Signs Temperature 97.0 F 04/01/23 16:00 Pulse Rate 61 04/01/23 16:00 Respiratory Rate 17 04/01/23 16:00 Blood Pressure 122/58 04/01/23 16:00 O2 Sat by Pulse Oximetry 100 04/01/23 16:00 Intake & Output: Intake & Output 03/30/23 03/31/23 04/01/23 04/02/23 11:59 11:59 11:59 11:59 Intake Total 840 Balance 840 Weight 100.2 kg - Lab Result Diagrams: 04/01/23 02:01 03/31/23 17:34 - Radiology Exams Ordered Rad Exams-Entire Visit: Radiology Procedures Category Date Time Status CT ANGIOGRAPHY NECK [CT] Stat Exams 03/31/23 17:57 Completed CTA HEAD W AND/OR WO CONTRAST [CT] Stat Exams 03/31/23 17:57 Completed HEAD WITHOUT CONTRAST [CT] Stat Exams 03/31/23 17:44 Completed MRI BRAIN W & W/O CONTRAST [MRI] Stat Exams 04/01/23 23:08 Completed MRI C-SPINE W/O CONTRAST [MRI] Stat Exams 04/01/23 23:08 Completed - Procedures and Test Procedures and Tests throughout Hospitalization: Therapy Orders & Screens 03/31/23 23:08 EKG REPEAT IN AM Comment: - Discharge Discharge Date: 04/01/23 Disposition: Home, Self-Care Condition: Stable Prescriptions: No Action Lisinopril 20 mg [Zestril 20 MG] 20 mg PO DAILY Metoprolol Succinate 25 mg Xl* [Toprol-Xl 25MG Tablets] 25 mg PO HS Rimegepant Sulfate [Nurtec Odt] 75 mg PO DAILY Magnesium Oxide 250 mg PO BID Gabapentin [Neurontin] 300 mg PO TID Esomeprazole Magnesium [Nexium] 40 mg PO DAILY Topiramate [Topiramate ER] 150 mg PO BID Duloxetine HCl 30 mg [Cymbalta 30 MG Capsule] 30 mg PO BID lamoTRIgine [Lamictal] 150 mg PO HS Clonidine HCl 0.1 mg [Clonidine 0.1 mg Tablet] 0.1 mg PO HS Oxycodone HCl/Acetaminophen [Percocet 10-325 mg Tablet] 1 tab PO BID Instructions: Migraines (DC) Additional Instructions: YOU WILL NEED A NEUROLOGIST REFERRAL FROM YOUR PCP AT YOUR FOLLOW UP APPOINTMENT FREE MEAL AT [facility] TON[facility] FROM 5-6PM Follow up with: TAYLOR BOLAÑOS NP [Primary Care Provider] - 04/03/23 1:00 pm
== END 2023-04-01 16:20 | disposition home or self-care (01) ==
LOC: ED 15:22 → MED SURG 23:06
PROVIDERS: ADMIT General Practice; ATTEND General Practice
DX: G43.009 Migraine without aura, not intractable, without status migrainosus (principal); J32.0 Chronic maxillary sinusitis; U07.1 COVID-19; I10 Essential (primary) hypertension; M79.602 Pain in left arm; R42 Dizziness and giddiness; R20.0 Anesthesia of skin; Z79.899 Other long term (current) drug therapy; Z20.828 Contact with and (suspected) exposure to other viral communicable diseases
CPT/HCPCS: 36415; 70450; 70496; 70498; 70553; 72141; 80053; 81001; 84484; 85025; 93005; 93268; 96374; 99284; G0378; J1200; A9270-GY

== ENCOUNTER 2023-07-24 10:30 | Day surgery (SDC) | payer BC ==
[2023-07-24] MEDS ORDERED: Depo-Medrol 40 MG/ML IM ONE (10:31)
[2023-07-24] MEDS ORDERED: Sodium Chloride 0.9(Preservative Free) 10 ML IJ ONE (10:31)
[2023-07-24 11:41] LABS: HCG URINE TEST NEGATIVE (NEGATIVE)
[2023-07-24] MEDS ORDERED: DIPRIVAN 200 MG/20 ML IV ONE (12:23)
[2023-07-24] MEDS ORDERED: Lactated Ringers 1,000 ML IV ONE (12:56)
--- NOTE | 2023-07-24 14:22 | XRAY ---
Indication: Left L4-S1 transforaminal ALEK. Intraoperative fluoroscopy provided for 26 seconds. 5 digital spot image submitted for interpretation demonstrates posterior needle tips projecting over the expected left L4 and L5 nerve roots. Small amount of contrast injected for needle tip placement. Correlate with intraoperative findings/report.
--- NOTE | 2023-07-24 14:24 | XRAY ---
26 seconds of fluoroscopy was used in surgery for a left L4-S1 transforaminal ALEK.
== END 2023-07-24 12:50 | disposition home or self-care (01) ==
LOC: SDC-PAIN 10:30
PROVIDERS: ATTEND Psychiatry & Neurology Pain Medicine
DX: M54.16 Radiculopathy, lumbar region (principal); Z79.899 Other long term (current) drug therapy
CPT/HCPCS: 64483; 64484; 72100; 77003; 81025; J1030; J2704; Q9966

== ENCOUNTER 2023-09-04 11:53 | Day surgery (SDC) | payer BC ==
[2023-09-04] MEDS ORDERED: BUPIVACAINE 0.5% VIAL IJ ONE (11:54)
[2023-09-04] MEDS ORDERED: Depo-Medrol 40 MG/ML IM ONE (11:54)
[2023-09-04 12:26] LABS: HCG URINE TEST NEGATIVE (NEGATIVE)
[2023-09-04] MEDS ORDERED: DIPRIVAN 200 MG/20 ML IV ONE (13:59)
[2023-09-04] MEDS ORDERED: Versed 2 MG/2 ML Injection ONE (13:59)
[2023-09-04] MEDS ORDERED: Lactated Ringers 1,000 ML IV ONE (14:54)
--- NOTE | 2023-09-04 15:00 | XRAY ---
21 seconds of fluoroscopy was used in surgery for a bilateral sacroiliac joint injection.
--- NOTE | 2023-09-04 15:13 | XRAY ---
Indication: Bilateral SI joint injection. Intraoperative fluoroscopy provided for 21 seconds. 5 digital spot images submitted for interpretation demonstrates posterior needle tip projecting over the left and right SI joint. Correlate with intraoperative findings/report.
== END 2023-09-04 14:35 | disposition home or self-care (01) ==
LOC: SDC-PAIN 11:53
PROVIDERS: ATTEND Psychiatry & Neurology Pain Medicine
DX: M46.1 Sacroiliitis, not elsewhere classified (principal)
CPT/HCPCS: 27096; 72202; 77002; 81025; J1030; J2250; J2704; G0260